=== PATIENT | male | born 1995 | race Caucasian/White ===

== ENCOUNTER → 2025-06-19 | Outpatient (CLI) | payer MEDICAID, SELFPAY ==
[2025-06-19 13:03] LABS: Ferritin 130 ng/mL (37-417); Free T3 3.6 pg/mL (2.18-3.98); T4 Total, Thyroxin 9.6 ug/dL (4.5-12.1); Vitamin B12 880 pg/mL (180-914); Vitamin D,25 Hydroxy 43.7 ng/mL (30-100)
[2025-06-24 15:08] LABS: Testosterone, % Free 1.81 % (1.50-4.20); Testosterone, Free 8.25 ng/dL (5.00-21.00)
== END | disposition home or self-care (01) ==
PROVIDERS: Referring Provider Family Medicine; Visit Provider Family Medicine
DX: R53.83 Other fatigue (principal)
CPT/HCPCS: 36415; 82306; 82607; 82670; 82728; 84402; 84403; 84436; 84439; 84481